=== PATIENT | female | born 1990 | race African-American/Black ===

== ENCOUNTER → 2020-03-04 | Outpatient (REF) | LOC: WSOH 09:05 | DX: Z02.1 Encounter for pre-employment examination (principal) ==

== ENCOUNTER → 2021-03-21 | Outpatient (CLI) | payer MEDICAID | LOC: COL.RAD 03-18 14:00 | DX: M47.816 Spondylosis without myelopathy or radiculopathy, lumbar region (principal); M51.26 Other intervertebral disc displacement, lumbar region; M51.27 Other intervertebral disc displacement, lumbosacral region; M51.36 Other intervertebral disc degeneration, lumbar region; M48.061 Spinal stenosis, lumbar region without neurogenic claudication; M48.07 Spinal stenosis, lumbosacral region ==